=== PATIENT | male | born 1975 | race Hispanic/Latino ===

== ENCOUNTER 2021-11-08 12:28 | Emergency (ER) | payer SELFPAY ==
[2021-11-09 03:04] VITALS: BP 109/57
--- NOTE | 2021-11-09 06:48 | Emergency Department Report ---
- General Chief complaint: Extremity Problem,Nontraumatic Stated complaint: POSS CELLULITIS LT ARM Time Seen by Provider: 11/09/21 05:03 Source: patient Mode of arrival: Ambulatory Limitations: No Limitations - History of Present Illness MD complaint: discoloration -: Gradual ( to 4 days) Location: LUE Severity: mild, moderate Quality: aching, dull Consistency: constant Improves with: none Worsens with: movement Context: none Associated symptoms: denies other symptoms - Related Data Previous Rx's Medication Instructions Recorded Last Taken Type Clindamycin [Clindamycin CAP] 150 mg PO Q8HR #30 capsule 11/09/21 Unknown Rx Ketorolac [Toradol] 10 mg PO Q6H PRN #10 11/09/21 Unknown Rx Allergies Allergy/AdvReac Type Severity Reaction Status Date / Time No Known Allergies Allergy Unverified 11/09/21 06:29 Abscess Boil HPI - HPI Chief Complaint: Extremity Problem,Nontraumatic Stated Complaint: POSS CELLULITIS LT ARM Time Seen by Provider: 11/09/21 05:03 Home Medications: Previous Rx's Medication Instructions Recorded Last Taken Type Clindamycin [Clindamycin CAP] 150 mg PO Q8HR #30 capsule 11/09/21 Unknown Rx Ketorolac [Toradol] 10 mg PO Q6H PRN #10 11/09/21 Unknown Rx Allergies/Adverse Reactions: Allergies Allergy/AdvReac Type Severity Reaction Status Date / Time No Known Allergies Allergy Unverified 11/09/21 06:29 ED Review of Systems ROS: Stated complaint: POSS CELLULITIS LT ARM Other details as noted in HPI Comment: All other systems reviewed and negative ED Past Medical Hx - Past Medical History Additional medical history: ulcerative colitis, chronic back pain - Surgical History Additional Surgical History: lower back sx ( multiple lumbar fusion) , hernia repair, alcohol abuse - Social History Smoking Status: Current Every Day Smoker - Medications Home Medications: Home Medications Medication Instructions Recorded Confirmed Last Taken Type Clindamycin [Clindamycin CAP] 150 mg PO Q8HR #30 capsule 11/09/21 Unknown Rx Ketorolac [Toradol] 10 mg PO Q6H PRN #10 11/09/21 Unknown Rx ED Physical Exam - General Limitations: No Limitations General appearance: alert, in no apparent distress - Head Head exam: Present: atraumatic, normocephalic - Eye Eye exam: Present: normal appearance - ENT ENT exam: Present: mucous membranes moist - Neck Neck exam: Present: normal inspection - Respiratory Respiratory exam: Present: normal lung sounds bilaterally. Absent: respiratory distress - Cardiovascular Cardiovascular Exam: Present: regular rate, normal rhythm. Absent: systolic murmur, diastolic murmur, rubs, gallop - GI/Abdominal GI/Abdominal exam: Present: soft, normal bowel sounds - Rectal Rectal exam: Present: deferred - Extremities Exam Extremities exam: Present: normal inspection, tenderness - Expanded Upper Extremity Exam Left Forearm Wrist exam: Present: erythema (Cellulitis of the forearm region noted no lymphangitis present warm to the touch. No abscess no induration. Capillary fill is brisk pulses 2+) - Back Exam Back exam: Present: normal inspection - Neurological Exam Neurological exam: Present: alert, oriented X3 - Psychiatric Psychiatric exam: Present: normal affect, normal mood - Skin Skin exam: Present: warm, dry, intact, normal color. Absent: rash ED Course Vital Signs 11/08/21 11/08/21 11/09/21 12:47 13:04 03:02 Temperature 98.0 F 97.9 F Pulse Rate 110 H 72 Respiratory 18 20 Rate Blood Pressure 95/66 109/57 [Right] O2 Sat by Pulse 96 100 Oximetry ED Medical Decision Making - Medical Decision Making Presentation consistent with simple cellulitis. Given history, exam, work-up I have low suspicion for necrotizing fasciitis, abscess, osteomyelitis, DVT or other emergent problem as cause for this presentation. The patient is nontoxic appearing and vital signs are stable. There is a reasonably low risk for treatment failure based on history. Strict return precautions were discussed with patient with full understanding. Advised patient to follow-up promptly with primary care care doctor within the next 48 hours. Critical care attestation.: If time is entered above; I have spent that time in minutes in the direct care of this critically ill patient, excluding procedure time. ED Disposition Clinical Impression: Cellulitis of left arm Disposition: HOME / SELF CARE / HOMELESS Is pt being admited?: No Does the pt Need Aspirin: No Condition: Stable Instructions: Cellulitis, Adult Additional Instructions: Seen and evaluated for wound to the left arm and presents with cellulitis. You were treated with clindamycin in the emergency department and you were discharged home with clindamycin and Toradol his medication to help with the inflammation and infection please be sure to have your wound reevaluated in 2 to 3 days to ensure it is responding to the treatment. Prescriptions: Clindamycin [Clindamycin CAP] 150 mg PO Q8HR #30 capsule Ketorolac [Toradol] 10 mg PO Q6H PRN #10 PRN Reason: Pain Referrals: GEORGIA MCDOWELL MD [Primary Care Provider] - 2-3 Days Forms: Work/School Release Form(ED)
[2021-11-09] MEDS ORDERED: CLINDAMYCIN 150 MG/ML VIAL 6 ML IM ONE (07:06)
== END 2021-11-09 07:20 | disposition home or self-care (01) ==
LOC: ED 12:28
DX: L03.114 Cellulitis of left upper limb (principal); F17.200 Nicotine dependence, unspecified, uncomplicated; Z79.899 Other long term (current) drug therapy
CPT/HCPCS: 96372; 99282